=== PATIENT | female | born 1990 | race American Indian/Alaskan Native ===

== ENCOUNTER 2017-10-07 21:20 | Emergency (ER) | payer OTHER ==
[2017-10-07 22:23] LABS: Basophils % (Auto) 0.4 % (0.0-1.8); Eosinophils % (Auto) 0.9 % (0.0-4.3); Hematocrit 41.6 % (30.3-42.9); Hemoglobin 13.7 gm/dl (10.1-14.3); Mean Corpuscular HGB Conc 33 % (30-34); Mean Corpuscular Hemoglobin 27 pg (28-32); Mean Corpuscular Volume 83 fl (79-97); Platelet Count 301 K/mm3 (140-440); Red Blood Count 5.02 M/mm3 (3.65-5.03); Red Cell Distribution Width 14.1 % (13.2-15.2); White Blood Count 8.7 K/mm3 (4.5-11.0)
[2017-10-07 22:33] LABS: INR 0.89 (0.87-1.13)
[2017-10-07 22:34] LABS: Partial Thromboplastin Time 24.7 Sec. (24.2-36.6)
[2017-10-07 22:38] LABS: Anion Gap 23 mmol/L; BUN/Creatinine Ratio 33; Blood Urea Nitrogen 13 mg/dL (7-17); Calcium 9.4 mg/dL (8.4-10.2); Carbon Dioxide 20 mmol/L (22-30); Chloride 96.9 mmol/L (98-107); Glucose 456 mg/dL (65-100); Sodium 136 mmol/L (137-145)
[2017-10-07 23:31] LABS: Bilirubin,Urine NEG (Negative); Blood,Urine NEG (Negative); Ketones,Urine TR mg/dL (Negative); Leukocyte Esterase,Urine NEG (Negative); Nitrite,Urine NEG (Negative); Protein,Urine <15 mg/dL mg/dL (Negative); Urobilinogen,Urine < 2.0 mg/dL (<2.0); WBC,Urine < 1.0 /HPF (0.0-6.0)
[2017-10-08] MEDS ORDERED: NACL 0.9% 1000 ML 1,000 ML IV ONE
--- NOTE | 2017-10-08 00:04 | Emergency Department Report ---
ED General Adult HPI - General Chief complaint: Chest Pain Stated complaint: SOB CP Time Seen by Provider: 10/07/17 23:56 Source: patient Mode of arrival: Ambulatory Limitations: No Limitations - History of Present Illness Initial comments: Patient is 26 years old female type 2 diabetes. Noncompliant with her medication she came today with chest pain and left-sided comes and goes. She stated that she has been passing out more frequently. She denied any nausea or vomiting no diarrhea. No fever. Patient stated that she is on Humalog but she does not remember the last time she took it because she cannot afford it. Patient denied abdominal pain no urinary symptoms. -: Gradual Severity scale (0 -10): 7 - Related Data Previous Rx's Medication Instructions Recorded Last Taken Type metFORMIN [Glucophage] 500 mg PO BID #60 tablet 04/12/16 Unknown Rx Insulin Glargine [Lantus] 30 unit SUB-Q QHS #3 vial 10/08/17 Unknown Rx Insulin Lispro [HumaLOG VIAL] 5 units SQ AC #5 vial 10/08/17 Unknown Rx Allergies Allergy/AdvReac Type Severity Reaction Status Date / Time latex Allergy Rash Verified 04/12/16 10:40 ED Review of Systems ROS: Stated complaint: SOB CP Other details as noted in HPI Comment: All other systems reviewed and negative Constitutional: denies: chills, fever Respiratory: denies: cough, orthopnea, shortness of breath, SOB with exertion, SOB at rest Cardiovascular: chest pain. denies: palpitations, dyspnea on exertion, orthopnea Gastrointestinal: denies: abdominal pain, nausea, vomiting, diarrhea, constipation, hematemesis, melena, hematochezia Genitourinary: denies: urgency, dysuria, frequency, hematuria, discharge, abnormal menses Musculoskeletal: denies: back pain, joint swelling Neurological: denies: headache, weakness, numbness, paresthesias ED Past Medical Hx - Past Medical History Previous Medical History?: Yes Hx Diabetes: Yes (Prior non compliant) Additional medical history: Obesity - Surgical History Past Surgical History?: No - Social History Smoking Status: Never Smoker Substance Use Type: None - Medications Home Medications: Home Medications Medication Instructions Recorded Confirmed Last Taken Type metFORMIN [Glucophage] 500 mg PO BID #60 tablet 04/12/16 Unknown Rx Insulin Glargine [Lantus] 30 unit SUB-Q QHS #3 vial 10/08/17 Unknown Rx Insulin Lispro [HumaLOG VIAL] 5 units SQ AC #5 vial 10/08/17 Unknown Rx ED Physical Exam - General Limitations: No Limitations General appearance: alert, in no apparent distress - Head Head exam: Present: atraumatic - Eye Eye exam: Present: normal appearance - ENT ENT exam: Present: mucous membranes dry - Neck Neck exam: Present: normal inspection, full ROM. Absent: tenderness, meningismus, lymphadenopathy, thyromegaly - Respiratory Respiratory exam: Present: normal lung sounds bilaterally. Absent: respiratory distress, wheezes, rales, rhonchi, stridor, chest wall tenderness, accessory muscle use, decreased breath sounds, prolonged expiratory - Cardiovascular Cardiovascular Exam: Present: regular rate, normal rhythm, normal heart sounds - GI/Abdominal GI/Abdominal exam: Present: soft, normal bowel sounds. Absent: distended, tenderness, guarding, rebound, rigid, mass, bruit, pulsatile mass, hernia - Extremities Exam Extremities exam: Present: normal inspection, full ROM, normal capillary refill - Back Exam Back exam: Present: normal inspection. Absent: tenderness, CVA tenderness (R), CVA tenderness (L) - Neurological Exam Neurological exam: Present: alert, oriented X3, CN II-XII intact, normal gait - Skin Skin exam: Present: warm, dry, normal color ED Course Vital Signs 10/07/17 10/07/17 10/07/17 21:26 21:35 21:41 Temperature 97.9 F 98.2 F Pulse Rate 96 H Respiratory 20 18 Rate Blood Pressure 122/83 126/70 Blood Pressure 133/66 [Right] O2 Sat by Pulse 99 99 Oximetry 10/07/17 10/07/17 10/07/17 21:46 22:00 22:16 Temperature Pulse Rate 60 70 80 Respiratory 18 17 13 Rate Blood Pressure 122/83 122/83 109/46 Blood Pressure [Right] O2 Sat by Pulse 100 100 Oximetry 10/07/17 10/07/17 10/08/17 23:38 23:46 00:00 Temperature Pulse Rate Respiratory Rate Blood Pressure 109/46 132/68 132/68 Blood Pressure [Right] O2 Sat by Pulse 100 99 99 Oximetry 10/08/17 10/08/17 10/08/17 00:16 00:30 00:46 Temperature Pulse Rate 84 70 Respiratory 33 H 12 Rate Blood Pressure 126/58 126/58 126/58 Blood Pressure [Right] O2 Sat by Pulse 100 100 100 Oximetry 10/08/17 00:50 Temperature 97.8 F Pulse Rate Respiratory Rate Blood Pressure Blood Pressure [Right] O2 Sat by Pulse Oximetry - Reevaluation(s) Reevaluation #1: 10/08/17 01:18 Patient stated that she is feeling better. I stressed with her the need to be compliant with our medication. I informed by the complication of diabetes. Patient understood and she stated that she will refill are insulin and she will have a primary care physician to follow up with. ED Medical Decision Making - Lab Data Result diagrams: 10/07/17 21:59 10/07/17 21:59 - EKG Data -: EKG Interpreted by Me EKG shows normal: sinus rhythm - EKG Data Interpretation: no acute changes - Radiology Data Radiology results: image reviewed interpreted by me: Chest x-ray no acute finding Critical care attestation.: If time is entered above; I have spent that time in minutes in the direct care of this critically ill patient, excluding procedure time. ED Disposition Clinical Impression: Chest pain, Hyperglycemia due to type 2 diabetes mellitus Disposition: DC-01 TO HOME OR SELFCARE Is pt being admited?: No Condition: Stable Instructions: Chest Pain (ED), Diabetes Mellitus Type 2 in Adults (ED) Prescriptions: Insulin Glargine [Lantus] 30 unit SUB-Q QHS #3 vial Insulin Lispro [HumaLOG VIAL] 5 units SQ AC #5 vial Referrals: PRIMARY CARE, [Primary Care Provider] - 3-5 Days
[2017-10-08 01:41] VITALS: BP 127/51
--- NOTE | 2017-10-08 08:21 | XRay Report ---
CHEST 2 VIEWS INDICATION: Shortness of breath.. COMPARISON: None similar. FINDINGS: Frontal and lateral chest radiographs demonstrate limited inspiration with exaggerated cardiomediastinal silhouette and somewhat crowded lung markings centrally and toward the bases. Right hemidiaphragm minimally elevated. No pleural effusions or CHF. No acute osseous process. CONCLUSION: Limited exam without definite acute disease, as described. Please correlate. Thank you for the opportunity to participate in this patient's care.
== END 2017-10-08 01:32 | disposition home or self-care (01) ==
LOC: ED 21:20
DX: R07.9 Chest pain, unspecified (principal); E11.65 Type 2 diabetes mellitus with hyperglycemia
CPT/HCPCS: 36415; 71020; 80048; 81001; 82805; 82962; 84484; 84703; 85025; 85610; 85730; 96361; 96374; 99284; J7030; J1815

== ENCOUNTER 2018-04-13 03:26 | Emergency (ER) | payer OTHER ==
[2018-04-13] MEDS ORDERED: ASPIRIN PO ONE (03:45)
[2018-04-13 04:10] LABS: Basophils # (Auto) 0.1 K/mm3 (0.0-0.1); Basophils % (Auto) 0.7 % (0.0-1.8); Eosinophils # (Auto) 0.1 K/mm3 (0.0-0.4); Eosinophils % (Auto) 0.6 % (0.0-4.3); Hematocrit 38.6 % (30.3-42.9); Hemoglobin 13.1 gm/dl (10.1-14.3); Lymphocytes # (Auto) 2.9 K/mm3 (1.2-5.4); Lymphocytes % (Auto) 32.4 % (13.4-35.0); Mean Corpuscular HGB Conc 34 % (30-34); Mean Corpuscular Hemoglobin 27 pg (28-32); Mean Corpuscular Volume 81 fl (79-97); Monocytes # (Auto) 0.5 K/mm3 (0.0-0.8); Platelet Count 311 K/mm3 (140-440); Red Blood Count 4.76 M/mm3 (3.65-5.03)
[2018-04-13 04:26] LABS: BUN/Creatinine Ratio 30; Blood Urea Nitrogen 12 mg/dL (7-17); Calcium 9.3 mg/dL (8.4-10.2); Hemolysis Index 3
[2018-04-13 06:39] VITALS: BP 130/69
--- NOTE | 2018-04-13 07:56 | Emergency Department Report ---
ED Chest Pain HPI - General Chief Complaint: Chest Pain Stated Complaint: CP Time Seen by Provider: 04/13/18 07:46 Source: patient Mode of arrival: Ambulatory Limitations: No Limitations - History of Present Illness Initial Comments: Patient is 27-year-old female with history of borderline diabetes. Patient presented to the ER complaining of left sided chest pain that radiated to her left shoulder. Patient described her pain as sharp in nature. Pain is not associated with shortness of breath, cough or fever. MD Complaint: chest pain -: Last night Onset: during rest Pain Location: left chest Severity scale (0 -10): 3 Quality: sharp Consistency: intermittent Improves With: remaining still Worsens With: movement Other Symptoms: denies: cough, fever, syncope, rash, acid taste in mouth, leg swelling, palpitations, burping - Related Data Previous Rx's Medication Instructions Recorded Last Taken Type metFORMIN [Glucophage] 500 mg PO BID #60 tablet 04/12/16 Unknown Rx Insulin Glargine [Lantus] 30 unit SUB-Q QHS #3 vial 10/08/17 Unknown Rx Insulin Lispro [HumaLOG VIAL] 5 units SQ AC #5 vial 10/08/17 Unknown Rx Allergies Allergy/AdvReac Type Severity Reaction Status Date / Time latex Allergy Rash Verified 04/12/16 10:40 Heart Score - HEART Score History: Slightly suspicious EKG: Non-specific Age: < 45 Risk factors: 1-2 risk factors Troponin: < normal limit HEART Score: 2 - Critical Actions Critical Actions: 0-3 pts:0.9-1.7%risk of adverse cardiac event.Candidate for discharge ED Review of Systems ROS: Stated complaint: CP Other details as noted in HPI Comment: All other systems reviewed and negative Constitutional: denies: chills, fever Respiratory: denies: cough, orthopnea, shortness of breath, SOB with exertion, SOB at rest Cardiovascular: chest pain. denies: palpitations, dyspnea on exertion, orthopnea, edema, syncope, paroxysmal nocturnal dyspnea Gastrointestinal: denies: abdominal pain, nausea, vomiting, diarrhea, constipation, hematemesis, melena, hematochezia Genitourinary: denies: urgency, dysuria, frequency, hematuria, discharge, abnormal menses Musculoskeletal: denies: back pain Neurological: denies: headache, weakness, numbness, paresthesias, confusion, abnormal gait, vertigo ED Past Medical Hx - Past Medical History Previous Medical History?: Yes Hx Diabetes: Yes (no meds) Additional medical history: Obesity - Surgical History Past Surgical History?: No - Social History Smoking Status: Never Smoker Substance Use Type: None - Medications Home Medications: Home Medications Medication Instructions Recorded Confirmed Last Taken Type metFORMIN [Glucophage] 500 mg PO BID #60 tablet 04/12/16 Unknown Rx Insulin Glargine [Lantus] 30 unit SUB-Q QHS #3 vial 10/08/17 Unknown Rx Insulin Lispro [HumaLOG VIAL] 5 units SQ AC #5 vial 10/08/17 Unknown Rx ED Physical Exam - General Limitations: No Limitations General appearance: alert, in no apparent distress - Head Head exam: Present: atraumatic, normocephalic, normal inspection - Eye Eye exam: Present: normal appearance, PERRL - ENT ENT exam: Present: normal exam, normal orophraynx, mucous membranes moist, TM's normal bilaterally - Neck Neck exam: Present: normal inspection, full ROM. Absent: tenderness, meningismus, lymphadenopathy, thyromegaly - Respiratory Respiratory exam: Present: normal lung sounds bilaterally, chest wall tenderness (left upper chest). Absent: respiratory distress, wheezes, rales, rhonchi, stridor, accessory muscle use, decreased breath sounds, prolonged expiratory - Cardiovascular Cardiovascular Exam: Present: regular rate, normal rhythm, normal heart sounds - GI/Abdominal GI/Abdominal exam: Present: soft, normal bowel sounds. Absent: distended, tenderness, guarding, rebound, rigid, organomegaly, mass, bruit, pulsatile mass - Extremities Exam Extremities exam: Present: normal inspection, full ROM, normal capillary refill - Back Exam Back exam: Present: normal inspection, full ROM. Absent: tenderness, CVA tenderness (R), CVA tenderness (L), muscle spasm, paraspinal tenderness, vertebral tenderness, rash noted - Neurological Exam Neurological exam: Present: alert, oriented X3, CN II-XII intact, normal gait, reflexes normal - Skin Skin exam: Present: warm, intact, normal color ED Course Vital Signs 04/13/18 04/13/18 04/13/18 03:34 06:26 06:30 Temperature 97.8 F 98.5 F Pulse Rate 80 72 Respiratory 18 17 Rate Blood Pressure 128/83 Blood Pressure 130/69 [Right] O2 Sat by Pulse 97 100 100 Oximetry 04/13/18 04/13/18 06:31 06:39 Temperature Pulse Rate 77 72 Respiratory 15 Rate Blood Pressure 130/69 Blood Pressure [Right] O2 Sat by Pulse 100 Oximetry ED Medical Decision Making - Lab Data Result diagrams: 04/13/18 03:57 04/13/18 03:57 - EKG Data -: EKG Interpreted by In EKG shows normal: sinus rhythm Rate: normal - EKG Data Interpretation: no acute changes - Radiology Data Radiology results: report reviewed Referring Physician: BHARTI LEGER Patient Name: RATNA MADSEN Date of : 1990 Sex: Female Report Date: 2018-04-13 Report Status: Final[place] [address] Cat Scan Report Signed Patient: RATNA MADSEN MR#: [id number] : 1990 Acct:[id number] Age/Sex: 27 / F ADM Date: 04/13/18 Loc: ED Attending Dr: Ordering Physician: BHARTI LEGER Date of Service: 04/13/18 Procedure(s): CT angio chest Accession Number(s): [id number] cc: BHARTI LEGER CTA of the chest: Chest pain. Following intravenous contrast administration transverse images are obtained from the thoracic inlet to the upper abdomen using pulmonary embolus protocol. Coronal and sagittal 2-D reformatted images are included. No hilar or mediastinal adenopathy identified. The central airways are patent. The heart is normal in size. There are no pulmonary artery defects identified. No filling defects identified in the cardiac chambers. The heart is normal in size. The lungs are clear with no pulmonary nodule, infiltrate, or pleural changes. The images of the visualized upper abdomen are unremarkable. Impressions: Normal exam. Transcribed By: RADHA Dictated By: CHEMO MUNSON MD Electronically Authenticated By: CHEMO MUNSON MD Signed Date/Time: 04/13/18 1015 DD/ 1012 TD/TT: 04/13/18 1015 - Medical Decision Making Patient stated that she is feeling much better. Troponin is negative. A CTA test is negative for PE. I advised patient to follow up with her primary care physician in the next 2-3 days. Critical care attestation.: If time is entered above; I have spent that time in minutes in the direct care of this critically ill patient, excluding procedure time. ED Disposition Clinical Impression: Chest pain Disposition: DC-01 TO HOME OR SELFCARE Is pt being admited?: No Condition: Stable Instructions: Chest Pain (ED) Referrals: PRIMARY CARE, [Primary Care Provider] - 3-5 Days
[2018-04-13] MEDS ORDERED: ASPIRIN ONE (08:57)
--- NOTE | 2018-04-13 10:36 | Cat Scan Report ---
CTA of the chest: Chest pain. Following intravenous contrast administration transverse images are obtained from the thoracic inlet to the upper abdomen using pulmonary embolus protocol. Coronal and sagittal 2-D reformatted images are included. No hilar or mediastinal adenopathy identified. The central airways are patent. The heart is normal in size. There are no pulmonary artery defects identified. No filling defects identified in the cardiac chambers. The heart is normal in size. The lungs are clear with no pulmonary nodule, infiltrate, or pleural changes. The images of the visualized upper abdomen are unremarkable. Impressions: Normal exam.
--- NOTE | 2018-04-13 13:19 | XRay Report ---
PORTABLE CHEST: Chest pain. An AP portable view of the chest demonstrates a normal cardiac contour considering the limits of this technique. The lungs are clear with no evidence of infiltrate, fluid or failure. No interval change compared to October 07, 2017. IMPRESSION: Normal portable chest.
== END 2018-04-13 12:45 | disposition home or self-care (01) ==
LOC: ED 03:26
DX: R07.9 Chest pain, unspecified (principal); E11.9 Type 2 diabetes mellitus without complications
CPT/HCPCS: 36415; 71045; 71275; 80048; 82962; 84484; 84703; 85025; 85379; 93005; 93010; 99285; Q9967